=== PATIENT | female | born 1960 | race Caucasian/White ===

== ENCOUNTER → 2017-07-24 | Outpatient (CLI) | payer OTHER ==
[~2017-07-24] MED LIST: ALBU6.7H INH; ALPR-475 PO; CITA20TA5 PO; FURO-92 PO; METH-356 PO; OXYC5CAP2 PO; POTA10TA5 PO
== END | disposition home or self-care (01) ==
LOC: CFH 08:48
PROVIDERS: ATTEND Family Medicine
DX: Z12.31 Encounter for screening mammogram for malignant neoplasm of breast (principal); Z80.3 Family history of malignant neoplasm of breast
CPT/HCPCS: G0202

== ENCOUNTER → 2017-12-17 | Outpatient (CLI) | payer OTHER | END | disposition home or self-care (01) | LOC: CVU 15:14 | PROVIDERS: ATTEND Family Medicine | DX: M25.572 Pain in left ankle and joints of left foot (principal); M25.562 Pain in left knee; M79.89 Other specified soft tissue disorders; R22.42 Localized swelling, mass and lump, left lower limb | CPT/HCPCS: 93971 ==

== ENCOUNTER 2018-04-29 17:22 | Inpatient (IN) | payer OTHER ==
[~2018-04-29] VITALS: Ht 152.4 cm; Wt 87.7 kg
[~2018-04-29 17:22] MED LIST changes: -CITA20TA5 PO; +CITA20TA6 PO
[2018-04-29 18:35] LABS: BASOPHILS # (AUTO) 0.02 x10^3/uL (0-0.1); BASOPHILS % (AUTO) 0 % (0-1); EOSINOPHILS % (AUTO) 2 % (1-7); LYMPHOCYTES # (AUTO) 2.63 x10^3/uL (1-3.4); LYMPHOCYTES % (AUTO) 31 % (22-44); MD NO; MEAN CORPUSCULAR HEMOGLOBIN 30.3 pg (27.0-34.8); MEAN CORPUSCULAR HGB CONC 33.6 g/dL (32.4-35.8); MEAN CORPUSCULAR VOLUME 90.1 fL (80-100); MEAN PLATELET VOLUME 8.9 fL (7.4-10.4); MONOCYTES # (AUTO) 0.42 x10^3/uL (0.2-0.8); MONOCYTES % (AUTO) 5 % (2-9); NEUTROPHILS # (AUTO) 5.21 x10^3/uL (1.8-6.8); NEUTROPHILS % (AUTO) 61 % (42-75); PLATELET COUNT 149 x10^3/uL (130-400); RED BLOOD COUNT 4.35 x10^6/uL (3.82-5.3); RED CELL DISTRIBUTION WIDTH 13.7 % (9.6-15.2)
[2018-04-29 18:44] LABS: ALBUMIN 3.5 g/dL (3.4-5.0); ANION GAP 7 mmol/L (5-15); CALCIUM 9.3 mg/dL (8.5-10.1); CHLORIDE 101 mmol/L (98-107)
[2018-04-29 18:45] LABS: CREATININE 1.29 mg/dL (0.55-1.02)
[2018-04-29] MEDS ORDERED: CLINDAMYCIN PMX 600MG/50ML 50 ML ONE (18:49)
[2018-04-29] MEDS ORDERED: SODIUM CHLORIDE FLUSH 10ML SYR IVF ONE (19:00)
[2018-04-29] MEDS ORDERED: CLINDAMYCIN PMX 600MG/50ML 50 ML IVPB ONE (19:00)
[2018-04-29] MEDS ORDERED: SODIUM CHLORIDE FLUSH 10ML SYR IVF PRN (19:30)
[2018-04-29] MEDS ORDERED: SODIUM CHLORIDE 0.9% 1,000 ML IV SCH (19:48)
[2018-04-29] MEDS ORDERED: GABA300C PO (19:51)
[2018-04-29] MEDS ORDERED: FLUT1DIS IH (19:53)
[2018-04-29] MEDS ORDERED: FURO40TA6 PO (19:55)
[2018-04-29] MEDS ORDERED: OMEP-110 PO (19:56)
[2018-04-29] MEDS ORDERED: TIZA4CAP PO (19:56)
[2018-04-29] MEDS ORDERED: PROM12.553 RC (19:57)
[2018-04-29] MEDS ORDERED: ONDA4TAB10 PO (19:57)
[2018-04-29] MEDS ORDERED: POTASSIUM CHLORIDE 20 MEQ TAB.ER.PRT PO ONE (20:00)
[2018-04-29] MEDS ORDERED: POLYETHYLENE GLYCOL 17 GM PACKET PO PRN (20:00)
[2018-04-29] MEDS ORDERED: hydrALAzine 20 MG/ML, 1ML IVPush PRN (20:00)
[2018-04-29] MEDS ORDERED: TRAZODONE 50MG TABLET PO PRN (20:00)
[2018-04-29 20:24] VITALS: BP 129/80
[2018-04-29] MEDS: ENOXAPARIN 40 MG/0.4 ML SQ SCH (21:05)
[2018-04-29] MEDS ORDERED: OMNIPAQUE 350 MG/ML, 100ML BOTTLE ONE (21:58)
[2018-04-29] MEDS: METHADONE 10 MG TABLET PO SCH (23:00)
[2018-04-29] MEDS: OXYcodone/APAP 5/325MG TABLET PO PRN (23:00)
[2018-04-30 01:56] VITALS: BP 123/76
[2018-04-30 06:04] LABS: BASOPHILS # (AUTO) 0.03 x10^3/uL (0-0.1); BASOPHILS % (AUTO) 0 % (0-1); EOSINOPHILS # (AUTO) 0.22 x10^3/uL (0-0.4); EOSINOPHILS % (AUTO) 3 % (1-7); LYMPHOCYTES # (AUTO) 2.48 x10^3/uL (1-3.4); LYMPHOCYTES % (AUTO) 37 % (22-44); MD NO; MEAN CORPUSCULAR HEMOGLOBIN 30.3 pg (27.0-34.8); MEAN CORPUSCULAR HGB CONC 33.9 g/dL (32.4-35.8); MEAN CORPUSCULAR VOLUME 89.5 fL (80-100); MEAN PLATELET VOLUME 9.4 fL (7.4-10.4); MONOCYTES # (AUTO) 0.36 x10^3/uL (0.2-0.8); MONOCYTES % (AUTO) 5 % (2-9); NEUTROPHILS # (AUTO) 3.68 x10^3/uL (1.8-6.8); NEUTROPHILS % (AUTO) 54 % (42-75); PLATELET COUNT 135 x10^3/uL (130-400); RED BLOOD COUNT 4.02 x10^6/uL (3.82-5.3); RED CELL DISTRIBUTION WIDTH 13.8 % (9.6-15.2)
[2018-04-30 06:12] LABS: ANION GAP 4 mmol/L (5-15); CALCIUM 8.8 mg/dL (8.5-10.1); CHLORIDE 103 mmol/L (98-107)
[2018-04-30 06:25] LABS: CREATININE 1.19 mg/dL (0.55-1.02)
[2018-04-30] MEDS: OXYcodone/APAP 5/325MG TABLET PO PRN (06:45)
[2018-04-30 07:41] VITALS: BP 109/72
[2018-04-30] MEDS ORDERED: METHADONE 10 MG TABLET PO SCH (09:00)
[2018-04-30] MEDS ORDERED: OXYC5TAB3 PO (09:21)
[2018-04-30] MEDS: ONDANSETRON 2MG/ML, 2ML IVPush PRN (09:56)
[2018-04-30 15:13] VITALS: BP 130/81
[2018-04-30] MEDS ORDERED: ALBUTEROL SULFATE 2.5 MG/3 ML HHN PRN (16:00)
[2018-04-30] MEDS: OXYcodone IR 5MG TABLET PO SCH ×2 (16:12→22:00)
[2018-04-30] MEDS: GABAPENTIN 300 MG CAPSULE PO SCH ×2 (16:12→21:00)
[2018-04-30] MEDS: POTASSIUM CHLORIDE 20 MEQ TAB.ER.PRT PO SCH ×2 (16:12→17:30)
[2018-04-30] MEDS: ONDANSETRON ODT 4 MG PO PRN ×2 (16:41→23:11)
[2018-04-30 16:42] VITALS: BP 133/86
[2018-04-30 18:49] VITALS: BP 128/67
[2018-04-30] MEDS: PROMETHAZINE 25 MG/ML, 1ML IM PRN ×2 (18:56→22:56)
[2018-04-30] MEDS: ENOXAPARIN 40 MG/0.4 ML SQ SCH (20:00)
[2018-04-30] MEDS: FUROSEMIDE 80 MG TABLET PO SCH (21:00)
[2018-04-30] MEDS: METHADONE 10 MG TABLET PO SCH ×2 (21:00)
[2018-04-30] MEDS: POTASSIUM CHLORIDE 10 MEQ TABLET.ER PO SCH (21:00)
[2018-04-30 21:24] VITALS: BP 137/86
[2018-05-01 01:41] VITALS: BP 150/90
[2018-05-01] MEDS ORDERED: METOCLOPRAMIDE 10MG TABLET ONE (02:12)
[2018-05-01] MEDS ORDERED: METOCLOPRAMIDE 10MG TABLET PO ONE (02:30)
[2018-05-01] MEDS: OXYcodone IR 5MG TABLET PO SCH ×5 (04:00→22:00)
[2018-05-01] MEDS: PROMETHAZINE 25 MG/ML, 1ML IM PRN ×4 (04:56→20:41)
[2018-05-01 05:33] LABS: CHLORIDE 104 mmol/L (98-107)
[2018-05-01 05:39] LABS: BASOPHILS # (AUTO) 0.02 x10^3/uL (0-0.1); BASOPHILS % (AUTO) 0 % (0-1); EOSINOPHILS % (AUTO) 0 % (1-7); LYMPHOCYTES # (AUTO) 0.91 x10^3/uL (1-3.4); LYMPHOCYTES % (AUTO) 10 % (22-44); MD NO; MEAN CORPUSCULAR HEMOGLOBIN 30.5 pg (27.0-34.8); MEAN CORPUSCULAR VOLUME 89.8 fL (80-100); MEAN PLATELET VOLUME 9.1 fL (7.4-10.4); MONOCYTES # (AUTO) 0.22 x10^3/uL (0.2-0.8); MONOCYTES % (AUTO) 2 % (2-9); NEUTROPHILS % (AUTO) 88 % (42-75); PLATELET COUNT 142 x10^3/uL (130-400); RED CELL DISTRIBUTION WIDTH 13.5 % (9.6-15.2)
[2018-05-01 05:40] LABS: ALANINE AMINOTRANSFERASE 19 U/L (12-78); ALBUMIN 3.4 g/dL (3.4-5.0); ALKALINE PHOSPHATASE 162 U/L (45-117); ANION GAP 4 mmol/L (5-15); BILIRUBIN,TOTAL 0.6 mg/dL (0.2-1.0); CALCIUM 9.4 mg/dL (8.5-10.1); TOTAL PROTEIN 7.7 g/dL (6.4-8.2)
[2018-05-01 07:28] VITALS: BP 163/87
[2018-05-01] MEDS: TIZANIDINE 4MG TABLET PO SCH (09:00)
[2018-05-01] MEDS: POTASSIUM CHLORIDE 10 MEQ TABLET.ER PO SCH ×2 (09:00→21:00)
[2018-05-01] MEDS: GABAPENTIN 300 MG CAPSULE PO SCH ×3 (09:00→21:00)
[2018-05-01] MEDS: FLUTICASONE/VILANTEROL 100-25MCG/INH INH SCH (09:00)
[2018-05-01] MEDS: METHADONE 10 MG TABLET PO SCH ×3 (09:00→21:00)
[2018-05-01] MEDS: OMEPRAZOLE 20 MG CAPSULE.DR PO SCH (09:00)
[2018-05-01] MEDS: FUROSEMIDE 80 MG TABLET PO SCH ×2 (09:00→21:00)
[2018-05-01 14:10] VITALS: BP 120/75
[2018-05-01] MEDS: ONDANSETRON 2MG/ML, 2ML IVPush PRN (18:25)
[2018-05-01] MEDS: ENOXAPARIN 40 MG/0.4 ML SQ SCH (19:34)
[2018-05-01 20:29] VITALS: BP 160/82
[2018-05-01] MEDS: PIPERACILLIN/TAZO/PMX 3.375GM 50 ML IV SCH (20:41)
[2018-05-01] MEDS ORDERED: FUROSEMIDE 40 MG/4 ML IV ONE (21:30)
[2018-05-01] MEDS: ONDANSETRON ODT 4 MG PO PRN (21:33)
[2018-05-02 01:42] VITALS: BP 124/76
[2018-05-02] MEDS: PIPERACILLIN/TAZO/PMX 3.375GM 50 ML IV SCH ×2 (02:18→09:00)
[2018-05-02] MEDS: PROMETHAZINE 25 MG/ML, 1ML IM PRN ×3 (02:19→12:09)
[2018-05-02] MEDS: OXYcodone IR 5MG TABLET PO SCH ×2 (03:57→10:00)
[2018-05-02] MEDS: ONDANSETRON 2MG/ML, 2ML IVPush PRN ×2 (03:57→09:58)
[2018-05-02] MEDS ORDERED: MORPHINE SULFATE 4 MG/ML, 1ML IVPush ONE (04:00)
[2018-05-02 07:57] VITALS: BP 150/99
[2018-05-02] MEDS: GABAPENTIN 300 MG CAPSULE PO SCH (09:00)
[2018-05-02] MEDS: FLUTICASONE/VILANTEROL 100-25MCG/INH INH SCH (09:00)
[2018-05-02] MEDS: FUROSEMIDE 80 MG TABLET PO SCH (09:00)
[2018-05-02] MEDS: OMEPRAZOLE 20 MG CAPSULE.DR PO SCH (09:00)
[2018-05-02] MEDS: TIZANIDINE 4MG TABLET PO SCH (09:00)
[2018-05-02] MEDS: POTASSIUM CHLORIDE 10 MEQ TABLET.ER PO SCH (09:00)
[2018-05-02] MEDS: ONDANSETRON ODT 4 MG PO PRN (09:00)
[2018-05-02] MEDS: METHADONE 10 MG TABLET PO SCH ×2 (09:00→12:00)
[2018-05-02] MEDS ORDERED: LACT1CAP24 PO (10:56)
[2018-05-02] MEDS ORDERED: SULF1TAB24 PO (10:56)
[2018-05-02] MEDS ORDERED: AMOX1TAB64 PO (10:56)
== END 2018-05-02 13:25 | disposition home or self-care (01) | DRG 602 ==
LOC: ED 19:39 → SUATTDRO 19:47 → EDIP 19:48 → 3NE 20:18 → DCLOUNGE 05-02 13:16
PROVIDERS: ADMIT Hospitalist; ATTEND Hospitalist
DX: L03.116 Cellulitis of left lower limb (principal); N17.0 Acute kidney failure with tubular necrosis; I89.0 Lymphedema, not elsewhere classified; J44.9 Chronic obstructive pulmonary disease, unspecified; E87.6 Hypokalemia; E16.2 Hypoglycemia, unspecified; M50.30 Other cervical disc degeneration, unspecified cervical region; N80.9 Endometriosis, unspecified; E66.01 Morbid (severe) obesity due to excess calories; K76.89 Other specified diseases of liver; N20.0 Calculus of kidney; Z87.891 Personal history of nicotine dependence; Z79.899 Other long term (current) drug therapy; Z90.49 Acquired absence of other specified parts of digestive tract; Z87.828 Personal history of other (healed) physical injury and trauma; Z99.81 Dependence on supplemental oxygen; Z88.0 Allergy status to penicillin; Z88.8 Allergy status to other drugs, medicaments and biological substances; Z91.040 Latex allergy status; Z68.37 Body mass index [BMI] 37.0-37.9, adult
CPT/HCPCS: 36415; 74018; 74177; 80048; 80053; 82040; 83605; 83735; 84100; 84443; 85025; 87040; 99285; J1650; J1940; J2405; J2543; J2550; Q0162; Q9967; J7030